=== PATIENT | male | born 1945 | race Caucasian/White ===

== ENCOUNTER → 2019-05-31 | Outpatient (CLI) | payer MEDICARE ==
[~2019-05-31] MED LIST: IOPAMIDOL 370 MG/ML 200 ML INFUS..BTL INJ ONE; SODIUM CHLORIDE 0.9% 50ML 50 ML ONE
[2019-05-31 14:15] LABS: BLOOD UREA NITROGEN 24 mg/dL (7-26); BUN/CREATININE RATIO 27 (6-25); EST GLOMERULAR FILTRATION RATE > 60 ML/MIN (60-)
--- NOTE | 2019-06-01 12:35 | Diagnostic Imaging Report ---
CT ORBIT/SELLA/PF W HISTORY: Orbital mass COMPARISON: None. TECHNIQUE: Axial CT images of the orbits were obtained with intravenous contrast. Coronal and sagittal reformatted images were created. One or more of the following dose reduction techniques were used: Automated exposure control, adjustment of the mA and/or kV according to patient size, and/or utilization of iterative reconstruction technique. FINDINGS: Mild deformity of the right lamina papyracea is likely from remote/chronic fracture. The right medial rectus muscle slightly protrude into the fracture defect (along with orbital fat). The orbital malone are otherwise grossly intact. The ocular globes and extraocular muscles are otherwise normal in morphology. The orbital optic nerves are normal in morphology. The intraconal and extraconal spaces, including the lacrimal glands, are otherwise unremarkable. The cavernous sinuses are grossly normal in size and enhance symmetrically. Carotid siphon calcifications are present. Meckel's caves are grossly clear. 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 There is also mild mucosal thickening in the bilateral maxillary sinuses and left frontonasal recess. Bilateral Chelsea cells are present. There is mild generalized cerebral volume loss. Mild periventricular white matter hypodensities are likely chronic microvascular ischemic changes. IMPRESSION: 1. Old right lamina papyracea fracture. The right medial rectus muscle slightly protrude into the fracture defect (along with orbital fat). 2. Otherwise, unremarkable orbits. 3. 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 Signed by: Dr. Maurice Toure M.D. on 06/01/2019 12:32 PM
== END ==
LOC: CT 13:17
PROVIDERS: ATTEND Thoracic Surgery (Cardiothoracic Vascular Surgery)
DX: H05.243 Constant exophthalmos, bilateral (principal)
CPT/HCPCS: 36415; 70481; 82565; 84520; Q9967